=== PATIENT | male | born 1940 | race Caucasian/White ===

== ENCOUNTER → 2018-04-07 | Outpatient (CLI) | payer MEDICARE, BC ==
[~2018-04-07] MED LIST: ALBU90OI INH; AMLO5 PO; ASPI325 PO; ASPI81CH PO; Azor 5-20 MG T1 EACH; BUDE6HFA INH; DOXY100 PO; FURO20 PO; FURO40 PO; HYDCHL25 PO; LISI20 PO; POTA10T PO; POTCHL10ER PO; PRED20 PO; SULTRIDS PO
== END | disposition home or self-care (01) ==
LOC: LAB SHORT 16:31 → LAB 16:31
DX: D51.8 Other vitamin B12 deficiency anemias (principal)
CPT/HCPCS: 82607; 82746

== ENCOUNTER → 2018-04-22 | Outpatient (CLI) | payer MEDICARE, BC | END | disposition home or self-care (01) | LOC: LAB SHORT 10:06 → PLD 10:06 | DX: L57.0 Actinic keratosis (principal) | CPT/HCPCS: 88305 ==

== ENCOUNTER → 2020-04-27 | Outpatient (CLI) | payer MEDICARE, BC ==
[2020-04-27 12:55] LABS: Alanine Aminotransfer (ALT/SGP 25 U/L (12-78); Albumin, Blood 3.8 g/dL (3.4-5.0); Albumin/Globulin Ratio 1.2 (0.8-1.8); Alk Phos 75 U/L (50-136); Anion Gap 8 mmol/L (6-16); Aspartate Aminotrans (AST/SGOT 18 U/L (12-37); Bilirubin, Total 0.6 mg/dL (0.1-1.0); Blood Urea Nitrogen 14 mg/dL (8-24); Bun/Creatinine Ratio 22.1 (12.0-20.0); CO2, Blood 25 mmol/L (21-32); Chloride, Blood 109 mmol/L (98-108); Creatinine, Blood 0.63 mg/dL (0.60-1.20); Globulin, Blood 3.3 g/dL (2.2-4.0); Glomerular Filtration Rate >60 (60-); Glucose, Blood 96 mg/dL (70-99); Phosphorus, Blood 2.6 mg/dL (2.5-4.9); Sodium, Blood 142 mmol/L (136-145); Total Protein, Blood 7.1 g/dL (6.4-8.2)
== END ==
LOC: LAB SHORT 09:00 → PLD 09:00
PROVIDERS: Internal Medicine Hematology & Oncology
DX: I10 Essential (primary) hypertension (principal)
CPT/HCPCS: 80053; 84100

== ENCOUNTER 2022-11-26 11:25 | Emergency (ER) | payer MEDICARE, BC ==
[~2022-11-26] VITALS: Ht 177.8 cm; Wt 131.5 kg
[2022-11-26 11:30] VITALS: BP 159/82
[2022-11-26 12:20] LABS: Influenza A, PCR NEGATIVE (NEGATIVE); Influenza B, PCR NEGATIVE (NEGATIVE); Resp Syncytial Virus, PCR NEGATIVE (NEGATIVE)
[2022-11-26 12:57] LABS: SARS-Cov-2 (COVID-19) PCR, MMC POSITIVE (NEGATIVE)
[2022-11-26] MEDS ORDERED: PAXLOVID 150-11 EACH PO (13:36)
== END 2022-11-26 13:48 | disposition home or self-care (01) ==
LOC: ER 11:25
PROVIDERS: Emergency Medicine
DX: U07.1 COVID-19 (principal); I10 Essential (primary) hypertension; Z79.899 Other long term (current) drug therapy; Z85.46 Personal history of malignant neoplasm of prostate; Z79.82 Long term (current) use of aspirin
CPT/HCPCS: 0241U; 99283

== ENCOUNTER 2022-12-10 09:59 | Emergency (ER) | payer MEDICARE, BC ==
[~2022-12-10] VITALS: Ht 177.8 cm; Wt 127.0 kg
[~2022-12-10 09:59] MED LIST changes: +PAXLOVID 150-11 EACH PO
[2022-12-10 10:04] VITALS: BP 146/81
== END 2022-12-10 10:48 | disposition home or self-care (01) ==
LOC: ER 09:59
DX: R05.9 Cough, unspecified (principal); U09.9 Post COVID-19 condition, unspecified; I10 Essential (primary) hypertension; Z79.899 Other long term (current) drug therapy
CPT/HCPCS: 71046; 99283-25

== ENCOUNTER 2024-05-19 06:13 | Emergency (ER) | payer MEDICARE, BC ==
[~2024-05-19] VITALS: Ht 182.9 cm; Wt 99.8 kg
[2024-05-19] MEDS ORDERED: BENZ100A PO (07:14)
[2024-05-19] MEDS ORDERED: ALBU90OI INH (07:14)
[2024-05-19] MEDS ORDERED: PRED20 PO (07:14)
[2024-05-19 07:46] LABS: CORONAVIRUS COVID-19 AG Negative (NEGATIVE); INFLUENZA A AG Negative (NEGATIVE); INFLUENZA B AG Negative (NEGATIVE)
[2024-05-19 08:04] VITALS: BP 128/72
== END 2024-05-19 08:07 | disposition home or self-care (01) ==
LOC: ER 06:13
PROVIDERS: Emergency Medicine
DX: J40 Bronchitis, not specified as acute or chronic (principal); I10 Essential (primary) hypertension; Z79.82 Long term (current) use of aspirin; Z79.899 Other long term (current) drug therapy
CPT/HCPCS: 71046; 87428-QW; 99283-25

== ENCOUNTER 2024-06-03 15:56 | Emergency (ER) | payer MEDICARE, BC ==
[~2024-06-03] VITALS: Ht 180.3 cm; Wt 127.0 kg
[~2024-06-03 15:56] MED LIST changes: +BENZ100A PO
[2024-06-03 16:32] LABS: BASOPHILS ABSOLUTE AUTO 0.02 K/mm3 (0.00-0.23); BASOPHILS PERCENT AUTO 0 % (0-2); EOSINOPHILS ABSOLUTE AUTO 0.01 K/mm3 (0.00-0.68); EOSINOPHILS PERCENT AUTO 0 % (0-6); Hematocrit 43.4 % (37.0-53.0); Hemoglobin 15.5 g/dL (13.5-17.5); IMMATURE GRAN ABSOLUTE AUTO 0.02 K/mm3 (0.00-0.10); IMMATURE GRAN PERCENT AUTO 0 % (0-1); LYMPHOCYTES ABSOLUTE AUTO 1.83 K/mm3 (0.84-5.20); LYMPHOCYTES PERCENT AUTO 31 % (21-46); MONOCYTES ABSOLUTE AUTO 1.11 K/mm3 (0.16-1.47); MONOCYTES PERCENT AUTO 19 % (4-13); Mean Corpuscular HGB Conc 35.7 g/dL (31.5-36.5); Mean Corpuscular Volume 93 fL (80-100); Mean Platelet Volume 9.6 fL (9.1-12.4); NEUTROPHILS ABSOLUTE AUTO 2.89 K/mm3 (1.96-9.15); NEUTROPHILS PERCENT AUTO 49 % (41-73); Platelet Count 130 K/mm3 (150-400); RDW Coefficient Variation 15.1 % (11.7-14.2); RDW Standard Deviation 51.8 fL (35.1-46.3); Red Blood Cell Count 4.69 M/mm3 (4.30-5.90); White Blood Cell Count 5.88 K/mm3 (4.00-11.30)
[2024-06-03 17:05] LABS: Influenza B, PCR NEGATIVE (NEGATIVE); Resp Syncytial Virus, PCR NEGATIVE (NEGATIVE); SARS-Cov-2 (COVID-19) PCR, MMC NEGATIVE (NEGATIVE)
[2024-06-03 17:09] LABS: Albumin, Blood 3.5 g/dL (3.4-5.0); Albumin/Globulin Ratio 0.9 (0.8-1.8); Bilirubin, Total 0.9 mg/dL (0.1-1.0); Bun/Creatinine Ratio 18.9 (12.0-20.0); Calcium, Blood 8.9 mg/dL (8.5-10.1); Creatinine, Blood 0.95 mg/dL (0.60-1.20); Globulin, Blood 3.8 g/dL (2.2-4.0); Potassium, Blood 3.2 mmol/L (3.5-5.5); Total Protein, Blood 7.3 g/dL (6.4-8.2)
[2024-06-03 18:31] LABS: Influenza A, PCR POSITIVE (NEGATIVE)
[2024-06-03 19:01] LABS: Source, Urine Clean Catch
[2024-06-03 19:11] LABS: Appearance, Urine Clear (Clear); Bilirubin, Urine Neg (Neg); Blood, Urine Neg (Neg); Color, Urine Yellow (P-Yellow); Glucose Qualitative, Urine Neg (Neg); Ketones, Urine Neg (Neg); Leukocyte Esterase, Urine Neg (Neg); Nitrite, Urine Neg (Neg); Protein, Urine 2+ (Neg); Specific Gravity, Urine 1.015 (1.003-1.022); Urobilinogen, Urine NORM (Normal)
[2024-06-03 19:35] LABS: Bacteria Rare /hpf; Hyaline Casts 0-2 /lpf (0-2); Red Blood Cells, Urine Not Seen /hpf (0-2); Squamous Epithelial Cells Not Seen /hpf (Few); White Blood Cells, Urine 0-2 /hpf (0-5)
[2024-06-03 20:25] VITALS: BP 134/86
== END 2024-06-03 20:26 | disposition home or self-care (01) ==
LOC: ER 15:56
PROVIDERS: Emergency Medicine
DX: J10.1 Influenza due to other identified influenza virus with other respiratory manifestations (principal); I10 Essential (primary) hypertension; Z79.82 Long term (current) use of aspirin; Z79.01 Long term (current) use of anticoagulants; Z79.2 Long term (current) use of antibiotics; Z79.899 Other long term (current) drug therapy
CPT/HCPCS: 0241U; 71046; 80053; 81001; 85025; 93005; 93010; 99284-25

== ENCOUNTER 2024-11-16 07:32 | Inpatient (IN) | payer MEDICARE, BC ==
[~2024-11-16] VITALS: Ht 177.8 cm; Wt 114.6 kg
[2024-11-16 08:26] LABS: BASOPHILS ABSOLUTE AUTO 0.01 K/mm3 (0.00-0.23); BASOPHILS PERCENT AUTO 0 % (0-2); EOSINOPHILS ABSOLUTE AUTO 0.06 K/mm3 (0.00-0.68); EOSINOPHILS PERCENT AUTO 2 % (0-6); Hematocrit 38.4 % (37.0-53.0); Hemoglobin 13.0 g/dL (13.5-17.5); IMMATURE GRAN ABSOLUTE AUTO 0.01 K/mm3 (0.00-0.10); IMMATURE GRAN PERCENT AUTO 0 % (0-1); LYMPHOCYTES ABSOLUTE AUTO 0.46 K/mm3 (0.84-5.20); LYMPHOCYTES PERCENT AUTO 12 % (21-46); MONOCYTES ABSOLUTE AUTO 0.38 K/mm3 (0.16-1.47); MONOCYTES PERCENT AUTO 10 % (4-13); Mean Corpuscular HGB Conc 33.9 g/dL (31.5-36.5); Mean Corpuscular Volume 93 fL (80-100); NEUTROPHILS ABSOLUTE AUTO 2.80 K/mm3 (1.96-9.15); NEUTROPHILS PERCENT AUTO 75 % (41-73); NRBC ABSOLUTE 0.00 K/mm3 (0.00-0.02); NRBC Auto 0.0 /100 WBC (0.0-0.2); Platelet Count 188 K/mm3 (150-400); RDW Coefficient Variation 16.2 % (11.7-14.2); RDW Standard Deviation 55.1 fL (35.1-46.3)
[2024-11-16 08:57] LABS: Alanine Aminotransfer (ALT/SGP 19.0 U/L (12-78); Albumin, Blood 3.6 g/dL (3.4-5.0); Albumin/Globulin Ratio 1.0 (0.8-1.8); Anion Gap 8.0 mmol/L (3-11); Aspartate Aminotrans (AST/SGOT 20.0 U/L (12-37); Bilirubin, Total 1.2 mg/dL (0.1-1.0); Blood Urea Nitrogen 24.0 mg/dL (8-24); CO2, Blood 28.0 mmol/L (21-32); Calcium, Blood 9.6 mg/dL (8.5-10.1); Chloride, Blood 104.0 mmol/L (98-108); Creatinine, Blood 1.11 mg/dL (0.60-1.20); Globulin, Blood 3.5 g/dL (2.2-4.0); Glucose, Blood 132.0 mg/dL (70-99); Potassium, Blood 3.5 mmol/L (3.5-5.5); Sodium, Blood 136.0 mmol/L (136-145); Total Protein, Blood 7.1 g/dL (6.4-8.2)
[2024-11-16] MEDS ORDERED: AMLODIPINE BESY10 MG PO (09:10)
[2024-11-16] MEDS ORDERED: Aspir 8181 MG PO (09:37)
[2024-11-16] MEDS ORDERED: TORSE20 PO (09:37)
[2024-11-16 12:53] VITALS: BP 117/69
[2024-11-16] MEDS ORDERED: POTA8 PO (13:00)
--- NOTE | 2024-11-16 14:39 | NUR ---
ADMIT TO PCU AT 1239: PATIENT ABLE TO STAND AND TRANSFER TO BED WITH SBA. DENIES PAIN AT THIS TIME. PERRLA, WEARING GLASSES. ALERT AND ORIENTED. PATIENT STATES PEPPER NORMAN WITH BE CONTACT HIS SISTER ERIC HAS DEMENTIA. NO OTHER FAMILY IN AREA. ON 2L NASAL CANNULA SATING 92-95%. CRACKLES HEARD IN BILATERAL LUNG BASES. DYSPNEA ON EXCERTION/TALKING. RR 18-24. DENIES COUGH. STATES HIS BREATHING IS FEELING BETTER FROM ARRIVAL. TELE SHOWING AFIB WITH BUNDLE BRANCH BLOCK. HR 60-80'S. DENIES HISTORY OF AFIB. PPP. BILATERAL LOWER EXTREMITIES WITH 4+ PITTING EDEMA. IV SALINE LOCKED. DENIES CHEST PAIN/PRESSURE/PALPITATIONS. ECHO COMPLETED THIS AM. BOWEL TONES PRESENT. DENIES ABDOMINAL PAIN/NAUSEA. PATIENT STATES HE HAS HAD A POOR APPEATITE IN GENERAL. USING URINAL TO VOID. PUREWICK OFFERED DUE TO SHORTNESS OF BREATH BUT PATIENT DENIES AT THIS TIME. MED REC COMPLETED. DR. FOWLER TO BEDSIDE AND H&P COMPLETED, THIS RN AT BEDSIDE FOR MD ROUNDING. PATIENT IN RECLINER WITH CALL LIGHT IN REACH. DENIES NEEDS AT THIS TIME.
[2024-11-16] MEDS ORDERED: Ipratropium/Albuterol SulF 2.5-0.5MG/3 ML Amp INH PRN (14:45)
[2024-11-16 15:08] VITALS: BP 119/61
[2024-11-16] MEDS ORDERED: Furosemide 10 MG / ML 2ML Vial IV SCH (18:00)
[2024-11-16 18:18] VITALS: BP 106/64
--- NOTE | 2024-11-16 18:37 | NUR ---
SHIFT SUMMARY: PATIENT REMAINS ALERT AND ORIENTED. ON 2L NASAL CANNULA. REMAINS IN AFIB WITH HR 60-80'S. UP IN RECLINER WITH LEGS ELEVATED. TOLERATING PO DIET. DENIES PAINS. UP TO BATHROOM WITH SBA. CONTINUES TO BE SHORT OF BREATH WITH EXCERTION OR TALKING. RT IN TO SET UP CPAP. CALL LIGHT IN REACH. DENIES NEEDS AT THIS TIME.
--- NOTE | 2024-11-16 19:45 | NUR ---
ASSUMTION OF CARE ASSUMED PT'S CARE AT 1900,BEDSIDE REPORT COMPLETED.PT WIDE AWAKE SITTING UP IN CHAIR.PT ENCOURAGED TO KEEP BLE ELEVATED TO REDUCE SWELLING.PT VERBALIZES UNDERSTANDING.PLAN OF CARE REVIEWED.PT DENIES PAIN,DENIES SOB AT REST.OXYGEN SATURATION >92% ON 2L VIA NC.PT DENIES NEEDS AT THIS TIME.CALL LIGHT AND PT'S ITEMS WITHIN REACH.MONITORING ONGOING PER CARELAN.
[2024-11-16 20:28] VITALS: BP 120/66
[2024-11-17] VITALS (7 sets, daily range): BP systolic 122–140; BP diastolic 73–84
[2024-11-17 03:47] LABS: Hematocrit 36.7 % (37.0-53.0); Hemoglobin 12.2 g/dL (13.5-17.5); Mean Corpuscular HGB Conc 33.2 g/dL (31.5-36.5); Mean Corpuscular Volume 94 fL (80-100); NRBC ABSOLUTE 0.00 K/mm3 (0.00-0.02); NRBC Auto 0.0 /100 WBC (0.0-0.2); Platelet Count 186 K/mm3 (150-400); RDW Coefficient Variation 16.3 % (11.7-14.2); RDW Standard Deviation 56.0 fL (35.1-46.3)
[2024-11-17 04:14] LABS: Anion Gap 10.0 mmol/L (3-11); Blood Urea Nitrogen 22.0 mg/dL (8-24); CO2, Blood 26.0 mmol/L (21-32); Calcium, Blood 9.0 mg/dL (8.5-10.1); Chloride, Blood 104.0 mmol/L (98-108); Creatinine, Blood 1.0 mg/dL (0.60-1.20); Glucose, Blood 113.0 mg/dL (70-99); Potassium, Blood 3.7 mmol/L (3.5-5.5); Sodium, Blood 136.0 mmol/L (136-145)
--- NOTE | 2024-11-17 06:30 | NUR ---
PT MONITORED DURING THE SHIFT,SLEPT MOST OF THE NIGHT.USED THE CPAP.NO C/O PAIN/DISCOMFORT,NO C/O CHEST PAIN/PRESSURE.PT AWAKE AT THIS TIME,DENIES NEEDS.CALL LIGHT AND PT'S ITEMS WITHIN REACH.MONITORING ONGOING ER CAREPLAN.
[2024-11-17] MEDS ORDERED: Enoxaparin 40 MG/0.4 ML SYR SC SCH (09:00)
--- NOTE | 2024-11-17 11:36 | NUR ---
Pt has been tachypneic at rest, 24 RR / min, and mild dyspnea with activity, but he is able to walk into the bathroom to void. States that he does not feel like the diuretics are as effective as at home; however, discussed this with attending MD and per the I & O there is adequate diuresis taking place. The pt is needing at least 2 l/min of O2 with and without his CPAP to maintain spo2 greater than 90%. He does have crackles in the lower lobes of lungs, and deep edema of his BLE below the knees. Attempted to place xLarge OLIVIA hose instead of the SCDs but his legs are too large and unable to place them. BLE elevated using bed controls and an extra pillow to help reduce edema. Will attempt to place OLIVIA hose when edema has lessened. PT education given for new medications (Eliquis, Jardiance, Toprol XL, lisinopril, KDUR). Also educated pt on Lasix although he is familiar with concept of diuresis.
--- NOTE | 2024-11-17 17:41 | NUR ---
Pt has been gently diuresing today, but unfortunately he did have two unmeasured voids so I&O documentation is missing some values. He has been reporting a slight improvement in his breathing. Lung sounds this afternoon were clear on the right side, with fine inspiratory crackles on the left posterior lobe only. He has been walking to the bathroom to void nearly independently, minimal assistance only, wearing 2 l/min O2 n.c. delivery. OLIVIA hose and SCDs in place to help reduce swelling and promote venous return. Legs elevated when not sitting up for meals or walking to toilet. Vital signs have been stable, atrial fibrillation by telemetry noted with rate controlled less than 100 bpm. One brief episode of sinus bradycardia which was self limiting and the pt was asymptomatic.
[2024-11-18 04:34] VITALS: BP 128/84
[2024-11-18 05:03] LABS: Albumin, Blood 3.0 g/dL (3.4-5.0); Anion Gap 8 mmol/L (3-11); Blood Urea Nitrogen 21 mg/dL (8-24); CO2, Blood 28 mmol/L (21-32); Calcium, Blood 9.1 mg/dL (8.5-10.1); Chloride, Blood 106 mmol/L (98-108); Creatinine, Blood 0.90 mg/dL (0.60-1.20); Glucose, Blood 93 mg/dL (70-99); Magnesium, Blood 2.2 mg/dL (1.6-2.4); Phosphorus, Blood 3.6 mg/dL (2.5-4.9); Potassium, Blood 3.7 mmol/L (3.5-5.5); Sodium, Blood 138 mmol/L (136-145)
--- NOTE | 2024-11-18 06:14 | NUR ---
SHIFT SUMMARY PATIENT ALERT AND ORIENTED X4. HAD NO COMPLAINTS OF PAIN. PATIENT SHORT OF BREATH ON EXERTION, ON 2 LITERS O2 VIA NC WHILE AWAKE, WORE CPAP FOR SLEEP. VITAL SIGNS STABLE. NO ACUTE ISSUES NOTED OVERNIGHT. WILL CONTINUE TO MONITOR. CALL LIGHT WITHIN REACH.
--- NOTE | 2024-11-18 08:04 | NUR ---
ASSUMPTION NOTE: THIS RN TO ASSUME CARE OF PATIENT. PATIENT IS ASKING TO GO TO THE BATHROOM, IS IDEPENDENT IN THE ROOM WITH A STEADY GAIT. MORNING MEDICATIONS BROUGHT IN AND VITAL SIGNS STABLE. PATIENT DENIED ANY CHEST PAIN/PRESSURE. WEARING 2 LITERS VIA NASAL CANNULA SATTING >92%. BACK TO BED, BED IN LOWEST LOCKED POSITION CALL LIGHT WITHIN REACH.
[2024-11-18 08:09] VITALS: BP 143/82
[2024-11-18 11:20] VITALS: BP 114/73
--- NOTE | 2024-11-18 11:45 | NUR ---
MD ROUNDED: MD ROUNDED AND GAVE VERBAL ORDER TO GIVE A ONE TIME DOSE MORE OF LASIX, THOSE ORDERS WERE PLACED. PATIENT IS NOW MEDICAL STATUS WITH TELE, THOSE ORDERS WERE PLACED WELL. PATIENT AWARE PLAN WILL BE TO CONTINUE TO GET WATER OFF AND MONITOR.
[2024-11-18 16:05] VITALS: BP 142/79
--- NOTE | 2024-11-18 17:00 | NUR ---
SHIFT SUMMARY: PATIENT IS ALERT AND ORIENTED X4 & COOPERATIVE WITH HIS CARE, IS ABLE TO MAKE NEEDS KNOWN & USES CALL LIGHT APPROPRAITELY. SATTING >92% ON 2 LITERS AT THE START OF SHIFT AND WAS ABLE TO COME OFF OXYGEN AROUND 12PM AND SATTING >92%. COMPLAINS OF SOME SHORTNESS OF BREATH WITH EXERTION TO THE BATHROOM. ON TELE SHOWING AFIB WITH RATE BETWEEN 80-90'S. PATIENT FAMILY CALLED THROUGHOUT [facility] AND WERE UPDATED REGARDING PLAN ON DIURESING AND POSSIBLY LOOKING AT GOING HOME TOMORROW OR THE NEXT DAY. PATIENT IS MEDICAL STATUS. IS INDEPENDENT IN THE ROOM. PATIENT SITTING AT THE EDGE OF THE BED CURRENTLY AND STATING NOTHING ELSE IS NEEDED AT THIS TIME. BED IN LOWEST LOCKED POSITION, CALL LIGHT WITHIN REACH.
[2024-11-18 20:30] VITALS: BP 109/65
[2024-11-19] VITALS (7 sets, daily range): BP systolic 112–139; BP diastolic 59–81
--- NOTE | 2024-11-19 06:17 | NUR ---
SHIFT SUMMARY PATIENT ALERT AND ORINETED X4. HAD NO COMPLAINTS OF PAIN. NOTED TO HAVE DYSPNIA WHEN WALKING TO THE RESTROOM. ON ROOM AIR WITH SPO2 >90% WHILE AWAKE, WORE CPAP FOR SLEEP. NO ACUTE ISSUES NOTED OVERNIGHT. WILL CONTINUE TO MONITOR. CALL LIGHT WITHIN REACH.
[2024-11-19 10:39] LABS: Albumin, Blood 3.2 g/dL (3.4-5.0); Anion Gap 8 mmol/L (3-11); Blood Urea Nitrogen 23 mg/dL (8-24); CO2, Blood 29 mmol/L (21-32); Calcium, Blood 8.7 mg/dL (8.5-10.1); Chloride, Blood 104 mmol/L (98-108); Creatinine, Blood 0.92 mg/dL (0.60-1.20); Glucose, Blood 107 mg/dL (70-99); Magnesium, Blood 2.1 mg/dL (1.6-2.4); Phosphorus, Blood 3.1 mg/dL (2.5-4.9); Potassium, Blood 3.2 mmol/L (3.5-5.5); Sodium, Blood 138 mmol/L (136-145)
[2024-11-19] MEDS ORDERED: Furosemide 10 MG / ML 2ML Vial IV SCH (14:00)
--- NOTE | 2024-11-19 15:27 | NUR ---
Pt. is awake in bed when he welcomes my visit. Facilitated a life review. Pt verbalized that he is single and that [place] [facility]. Considered matters of lorenzo and belief. Pt. 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 Prayed with the Pt. Pt. verbalized gratitude for the spiritual care visit.
--- NOTE | 2024-11-19 18:39 | NUR ---
SHIFT SUMMARY PT A&O X4, STAND BY ASSIST. DENIES PAIN. PATIENT DID NOT REQUIRE ANY O2 THIS SHIFT. NO ACUTE CHANGES OR EVENTS. PLANS FOR DISCHARGE TOMORROW
--- NOTE | 2024-11-19 21:52 | NUR ---
PATIENT TO BE TRANSFERRED TO [facility] ROOM 342. REPORT GIVEN TO ELVIA Philip FOR ASSUMPTION OF CARE.
[2024-11-20 00:24] VITALS: BP 123/70
[2024-11-20 04:11] VITALS: BP 128/84
[2024-11-20 06:06] LABS: Albumin, Blood 3.3 g/dL (3.4-5.0); Anion Gap 9 mmol/L (3-11); Blood Urea Nitrogen 22 mg/dL (8-24); CO2, Blood 28 mmol/L (21-32); Calcium, Blood 8.7 mg/dL (8.5-10.1); Chloride, Blood 104 mmol/L (98-108); Creatinine, Blood 0.91 mg/dL (0.60-1.20); Glucose, Blood 98 mg/dL (70-99); Magnesium, Blood 2.0 mg/dL (1.6-2.4); Phosphorus, Blood 3.2 mg/dL (2.5-4.9); Potassium, Blood 3.5 mmol/L (3.5-5.5); Sodium, Blood 137 mmol/L (136-145)
--- NOTE | 2024-11-20 06:20 | NUR ---
SHIFT SUMMARY PT IS ALERT AND ORIENTED TIMES 4. PT ADMITTED FOR ACUTE CHF. PT IS INDEPENDENT AND ABLE TO AMBULATE TO AND FROM THE TOILET IS ON ROOM AIR. PT IS CALL LIGHT APPROPRIATE AND ABLE TO MAKE NEEDS KNOWN TO STAFF. PT UTILIZES C-PAP MACHINE, APPEARED TO SLEEP ON AND OFF THROUGH THE NIGHT. PT IS POLITE TO STAFF AND RECEPTIVE TO CARE. BED IS AT LOW POSITION, RAILS TIMES TWO, AND CALL LIGHT WITHIN REACH.
[2024-11-20 07:46] VITALS: BP 125/76
[2024-11-20] MEDS ORDERED: ELIQUIS5 M2 PO (11:10)
[2024-11-20] MEDS ORDERED: Lisinopril2.5 MG PO (11:11)
[2024-11-20] MEDS ORDERED: METO25ER PO (11:11)
[2024-11-20] MEDS ORDERED: JARDIANCE10 MG PO (11:11)
[2024-11-20] MEDS ORDERED: SPIR25 PO (11:12)
== END 2024-11-20 11:37 | disposition home health service (06) | DRG 291 ==
LOC: ER 07:32 → PCU 11:35 → MEDS 11-19 22:01
PROVIDERS: Student in an Organized Health Care Education/Training Program; ADMIT Internal Medicine
PROC: 5A09357 Assistance with Respiratory Ventilation, Less than 24 Consecutive Hours, Continuous Positive Airway Pressure (ICD-10-PCS; principal; 2024-11-16)
DX: I11.0 Hypertensive heart disease with heart failure (principal); I50.23 Acute on chronic systolic (congestive) heart failure; J96.01 Acute respiratory failure with hypoxia; I07.1 Rheumatic tricuspid insufficiency; I48.91 Unspecified atrial fibrillation; G47.33 Obstructive sleep apnea (adult) (pediatric); I27.20 Pulmonary hypertension, unspecified; Z96.641 Presence of right artificial hip joint; Z96.652 Presence of left artificial knee joint; Z85.46 Personal history of malignant neoplasm of prostate; Z90.79 Acquired absence of other genital organ(s); Z79.82 Long term (current) use of aspirin; R60.0 Localized edema; I34.0 Nonrheumatic mitral (valve) insufficiency
CPT/HCPCS: 36415; 71046; 80048; 80053; 80069; 83735; 83880; 84484; 85025; 85027; 93005; 93010; 93306; 94660; 94762; 96374; 99285-25; A9270; J1938